=== PATIENT | female | born 1995 | race Caucasian/White ===

== ENCOUNTER 2018-03-19 09:58 | Day surgery (SDC) | payer OTHER, SELFPAY ==
[2018-03-19 10:25] VITALS: BP 104/54; PULSE 54; RESP 16; TEMP 36.8; O2SAT 100; BMI 23.9
[2018-03-19 10:31] LABS: Internal QC Validated? YES +Cl - CLEAR BKGD; Pregnancy, Urine Negative Negative
--- NOTE | 2018-03-19 10:49 | PCM.DC ---
You will use the following diet at home:: Regular Discharge Activity: Return to Normal Activity Additional Activity Instructions:: Keep splint on as long as possible. Allergies/Adverse Reactions: Allergies amoxicillin Allergy (Verified 03/13/18 09:17) Hives Penicillins Allergy (Verified 03/13/18 09:17) Hives Medications to take at Discharge NK [NK] 03/13/18 Primary Care Physician: Alejandra Parsons PA [Primary Care Provider] -
[2018-03-19] MEDS: Oxymetazoline 0.05% 1 SPRAY SPRAY.BTL 15 SPRAY (11:02)
[2018-03-19 11:26] VITALS: BP 104/54; BP 118/81; PULSE 56; RESP 18; TEMP 36.3; O2SAT 100
--- NOTE | 2018-03-19 11:26 | PCM.OPRPT ---
Report of Operation Date of Procedure: 03/19/18 Pre-Operative Diagnosis: nasal fracture Post-Operative Diagnosis: same Surgery/Procedure Performed:: closed nasal reduction Description of Surgical Findings:: depressed left dorsum Type of Anesthesia:: General Anesthesiologist: Carlos Cloud Specimen's removed: none Estimated Blood Loss (mL): minimal Description of Procedure: The patient was taken to the OR on 03/19/18. She was placed in the supine position on the OR table. She was given sufficient general anesthesia. The head was elevated 30 degrees. The nose was decongested with afrin pledgets. The pledgets were then removed. A joker elevator was placed in the left nasal cavity and the bone was elevated laterally. I then placed pressure on the right dorsum and achieved a straight dorsum. Hemostasis was achieved with afrin pledgets. Steri strips and a Pugh nasal splint were placed without difficulty. She was then awoken and brought to the recovery room in stable condition. Blood loss minimal, replacement none. Sponge, needle, instrument count were correct at the end of the procedure.
[2018-03-19 11:30] VITALS: BP 104/54; BP 121/80; PULSE 57; RESP 18; O2SAT 100
[2018-03-19 11:45] VITALS: BP 104/54; BP 114/79; PULSE 57; RESP 16; O2SAT 100
[2018-03-19 11:55] VITALS: BP 104/54; BP 116/81; PULSE 51; RESP 16; TEMP 36.8; O2SAT 100
[2018-03-19 12:14] VITALS: BP 104/54
== END 2018-03-19 12:17 | disposition home or self-care (01) ==
LOC: SDC 10:00 → AC 10:03
PROVIDERS: Anesthesiology; Family Provider Family Medicine; PCP Physician Assistant; Visit Provider Otolaryngology
PROC: 0NSBXZZ Reposition Nasal Bone, External Approach (ICD-10-PCS; CPT 21320; principal; 2018-03-19 12:00)
DX: S02.2XXA Fracture of nasal bones, initial encounter for closed fracture (principal); X58.XXXA Exposure to other specified factors, initial encounter; Y93.9 Activity, unspecified; Y92.89 Other specified places as the place of occurrence of the external cause; Y99.9 Unspecified external cause status
CPT/HCPCS: 00160; 21320; 81025; J7120; J2405